=== PATIENT | male | born 1990 | race African-American/Black ===

== ENCOUNTER 2017-11-06 15:11 | Emergency (ER) | payer OTHER ==
[2017-11-06 15:29] VITALS: BP 143/75; PULSE 81; TEMP 99.1; BMI 30.2
--- NOTE | 2017-11-06 15:29 | PDOC ---
Rapid Medical Evaluation Time Seen by Provider: 11/06/17 15:26 Medical Evaluation: Allergies Allergy/AdvReac Type Severity Reaction Status Date / Time No Known Allergies Allergy Verified 11/06/17 15:25 11/06/17 15:26 I have performed a brief in-person evaluation of this patient. The patient presents with a chief complaint of: cough w/ sore throat and fever. Smoker Pertinent physical exam findings:Unremarkable I have ordered the following:nothing The patient will proceed to the ED for further evaluation Discharge Disposition - Diagnosis URI (upper respiratory infection) Qualifiers: URI type: unspecified URI Qualified Code(s): J06.9 - Acute upper respiratory infection, unspecified - Referrals - Patient Instructions - Post Discharge Activity
[2017-11-06] MEDS ORDERED: IBUPROFEN 600 MG TABLET (FP) PO ONE ×2 (15:45→15:53)
[2017-11-06] MEDS ORDERED: TOBRAMYCIN 0.3% OPHTH SOLN 5 ML BOTTLE OD ONE (15:47)
--- NOTE | 2017-11-06 15:52 | PDOC ---
History of Present Illness - General Chief Complaint: Cold Symptoms Stated Complaint: THROAT PAIN Time Seen by Provider: 11/06/17 15:26 History Source: Patient Exam Limitations: No Limitations - History of Present Illness Initial Comments: 11/06/17 15:49 27 yr male with sore throat and right eye pain for 2 days , recently had cough last week no fever no chills no medical history pt is a smoker Severity: mild Past History - Past Medical History Allergies/Adverse Reactions: Allergies Allergy/AdvReac Type Severity Reaction Status Date / Time No Known Allergies Allergy Verified 11/06/17 15:25 Home Medications: Ambulatory Orders Ibuprofen 800 mg PO TID PRN #21 tablet 11/06/17 Tobramycin Sulf/Dexamethasone [Tobradex *Eye Drops*] 1 drop OD Q4HWA #1 bottle 11/06/17 COPD: No Other medical history: DENIES. - Suicide/Smoking/Psychosocial Hx Smoking History: Current some day smoker Have you smoked in the past 12 months: Yes Number of Cigarettes Smoked Daily: 10 Information on smoking cessation initiated: No Review of Systems - Review of Systems Able to Perform ROS?: Yes Is the patient limited Guamanian proficient: No Constitutional: No: Symptoms Reported HEENTM: Yes: Symptoms Reported Respiratory: No: Symptoms reported Cardiac (ROS): No: Symptoms Reported ABD/GI: No: Symptoms Reported Musculoskeletal: No: Symptoms Reported Integumentary: No: Symptoms Reported *Physical Exam - Vital Signs Last Vital Signs Temp Pulse Resp BP Pulse Ox 99.1 F 81 19 143/75 100 11/06/17 15:25 11/06/17 15:25 11/06/17 15:25 11/06/17 15:25 11/06/17 15:25 - Physical Exam General Appearance: Yes: Nourished, Appropriately Dressed HEENT: positive: EOMI, Pharyngeal Erythema, Tonsillar Erythema, Other (right eye with erythema , no pain no discharge). negative: Tonsillar Exudate Neck: positive: Supple, Lymphadenopathy (L). negative: Lymphadenopathy (R) Respiratory/Chest: positive: Lungs Clear, Normal Breath Sounds Cardiovascular: positive: Regular Rhythm, Regular Rate Musculoskeletal: positive: Normal Inspection Extremity: positive: Normal Capillary Refill, Normal Inspection, Normal Range of Motion Medical Decision Making - Medical Decision Making 11/06/17 15:51 cc: eye redness, sore throat worse today scant discharge yest from eye non puritic no vision changes no pain EOMI without pain PER will check strep motrin now *DC/Admit/Observation/Transfer Diagnosis at time of Disposition: URI (upper respiratory infection) Qualifiers: URI type: unspecified URI Qualified Code(s): J06.9 - Acute upper respiratory infection, unspecified - Discharge Dispostion Disposition: HOME Condition at time of disposition: Good - Prescriptions Prescriptions: Ibuprofen 800 mg PO TID PRN #21 tablet PRN Reason: Pain Tobramycin Sulf/Dexamethasone [Tobradex *Eye Drops*] 1 drop OD Q4HWA #1 bottle - Referrals Referrals: Keke Molina MD [Primary Care Provider] - Bigg Mason MD [Staff Physician] - - Patient Instructions Additional Instructions: negative rapid strep you should gargle with warm salt water 4-5 times a day eat soft foods drink pleanty of fluids HONEY on a spoon or with tea three times a day is very helpful for sore thaot and kills viruses and bacteria in the throat take ibuprofen as directed for pain use the eyedrops as directed follow with your doctor or ENT next week also see the eye doctor if the redness does not improve with the drops - Post Discharge Activity
[2017-11-06] MEDS ORDERED: TOBRAMYCIN 0.3% OPHTH SOLN 5 ML BOTTLE ONE (15:53)
== END 2017-11-06 16:35 | disposition home or self-care (01) ==
LOC: JERFT 15:11
DX: J06.9 Acute upper respiratory infection, unspecified (principal)
CPT/HCPCS: 87070; 87430; 99281-25

== ENCOUNTER 2019-07-13 20:03 | Emergency (ER) | payer OTHER ==
[2019-07-13 20:08] VITALS: BP 133/70; PULSE 84; TEMP 98.1; BMI 30.8
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
== END 2019-07-13 21:45 | disposition home or self-care (01) ==
LOC: JERFT 20:03
DX: S89.81XA Other specified injuries of right lower leg, initial encounter (principal); V44.6XXA Car passenger injured in collision with heavy transport vehicle or bus in traffic accident, initial encounter; Y92.414 Local residential or business street as the place of occurrence of the external cause; Y93.89 Activity, other specified; Y99.8 Other external cause status; F17.210 Nicotine dependence, cigarettes, uncomplicated
CPT/HCPCS: 99283-25

== ENCOUNTER 2021-11-03 18:03 | Emergency (ER) | payer OTHER ==
[2021-11-03 18:21] VITALS: BP 141/87; PULSE 102; TEMP 101.1; BMI 30.7
[2021-11-03] MEDS ORDERED: ACETAMINOPHEN 500 MG TABLET (FP) PO ONE (19:23)
[2021-11-03] MEDS ORDERED: DEXAMETHASONE SOD PHOSPHATE 10 MG/1 ML VIAL IM ONE (19:23)
[2021-11-03 19:26] LABS: EPI CELLS 16 /uL (0-25.1); HYALINE CASTS 3 /uL (0-3.1); PH,URINE 7.5 (5.0-8.0); URINE APPEARANCE CLEAR; URINE BACTERIA 6 /uL (0-1359); URINE BILIRUBIN NEGATIVE (NEGATIVE); URINE COLOR DK YELLOW; URINE GLUCOSE (UA) NEGATIVE (NEGATIVE); URINE KETONE TRACE (NEGATIVE); URINE LEUK ESTERASE TRACE (NEGATIVE); URINE NITRITE NEGATIVE (NEGATIVE); URINE PROTEIN 2+ (NEGATIVE); URINE RBC 442 /uL (0-23.9); URINE WBC 24 /uL (0-25.8)
[2021-11-03] MEDS ORDERED: DEXAMETHASONE SOD PHOSPHATE 10 MG/1 ML VIAL ONE (19:42)
[2021-11-03] MEDS ORDERED: ACETAMINOPHEN 500 MG TABLET (FP) ONE (19:42)
[2021-11-03 19:48] LABS: THROAT:GRP A STREP NOT DETECTED (NOTDETECTED)
== END 2021-11-03 20:37 | disposition home or self-care (01) ==
LOC: JER 18:03
PROC: 3E023NZ Introduction of Analgesics, Hypnotics, Sedatives into Muscle, Percutaneous Approach (ICD-10-PCS; principal; 2021-11-03)
DX: B34.9 Viral infection, unspecified (principal)
CPT/HCPCS: 0241U-QW; 36415; 81003; 87086; 87491; 87591; 87651; 99284-25; J1100

== ENCOUNTER 2023-03-26 09:13 | Emergency (ER) | payer OTHER ==
[2023-03-26 09:21] VITALS: BP 118/72; PULSE 82; RESP 18; TEMP 98.1; BMI 30.7
== END 2023-03-26 10:39 | disposition home or self-care (01) ==
LOC: JER 09:13 → JERFT 09:13
DX: H66.001 Acute suppurative otitis media without spontaneous rupture of ear drum, right ear (principal); H92.01 Otalgia, right ear
CPT/HCPCS: 99283-25

== ENCOUNTER 2023-08-26 18:52 | Emergency (ER) | payer OTHER ==
[2023-08-26 19:14] VITALS: BP 119/73; PULSE 72; RESP 20; TEMP 98.4; BMI 30.7
[2023-08-26] MEDS ORDERED: valACYclovir HCL 500 MG TABLET (FP) ONE (21:52)
[2023-08-26] MEDS ORDERED: predniSONE 20 MG TABLET (UD) ONE (21:53)
[2023-08-26] MEDS: predniSONE 20 MG TABLET (UD) PO ONE (21:54)
[2023-08-26] MEDS: valACYclovir HCL 500 MG TABLET (FP) PO ONE (21:54)
== END 2023-08-27 00:05 | disposition home or self-care (01) ==
LOC: JER 18:52 → JERFT 18:52
DX: H92.01 Otalgia, right ear (principal); G51.0 Bell's palsy; R20.0 Anesthesia of skin
CPT/HCPCS: 70450-TC; 99284-25